=== PATIENT | male | born 1995 | race Caucasian/White ===

== ENCOUNTER 2025-01-29 20:34 | Emergency (ER) | payer BC ==
[~2025-01-29] VITALS: Ht 162.6 cm; Wt 63.0 kg
[2025-01-29 20:42] VITALS: O2SAT 100
[2025-01-29 20:51] VITALS: BP 123/80; PULSE 78; RESP 18; TEMP 36.8; O2SAT 99
[2025-01-29] MEDS ORDERED: KETOROLAC 15MG/ML VIAL IM ONE (22:30)
== END 2025-01-29 22:40 | disposition left against medical advice (07) ==
LOC: ER 20:34
DX: L84 Corns and callosities (principal); M79.672 Pain in left foot; M79.671 Pain in right foot; Z98.890 Other specified postprocedural states
CPT/HCPCS: 99282